=== PATIENT | male | born 1960 | race Caucasian/White ===

== ENCOUNTER 2020-12-14 09:54 | Outpatient (CLI) | payer OTHER, MEDICAID, SELFPAY ==
--- NOTE | ~2020-12-14 | MR_ITS ---
EXAMINATION: MR shoulder RT wo con DATE: 12/14/2020 10:49 INDICATION: Right shoulder pain TECHNIQUE: Magnetic resonance imaging (MRI) of the right shoulder was performed without intravenous c ontrast. Sequences included axial PD-weighted FS FSE, coronal oblique PD-weighted FS FSE, coronal obl ique T2-weighted FS FSE, sagittal PD-weighted FS FSE, and sagittal T1-weighted SE. COMPARISON: None. FINDINGS: Coracoacromial arch: The acromion undersurface is curved in morphology (type II). The coracoacromial ligament is normal. M inimal acromioclavicular osteoarthritis. Rotator cuff: The supraspinatus, infraspinatus and teres minor tendons are normal. The subscapularis tendon is norm al. Normal rotator cuff muscle bulk and signal. Biceps tendon, glenoid labrum and glenohumeral cartilage: Long head of the biceps tendon is normal. Glenoid labrum is normal. Glenohumeral cartilage is normal. Fluid: Physiologic amount of fluid in the glenohumeral joint and biceps tendon sheath. No loose osteochondra l bodies. No abnormal fluid signal in the subacromial/subdeltoid bursa to suggest bursitis. Bones: Normal marrow signal with no edema, fracture or pathologic marrow replacing process. There is thicken ing and mild increased fluid signal at the midportion of the rotator cuff interval along with thicken ing and mild increased fluid signal filling joint capsule at the axillary recess, both findings which can be seen in the setting of adhesive capsulitis which is a clinical diagnosis. IMPRESSION: 1. Thickening of the capsule at the axillary recess and at the rotator cuff interval which can be see n in the setting of adhesive capsulitis which is a clinical diagnosis. Otherwise unremarkable [facility] MRI. Reviewed, dictated and finalized at location A. IMPRESSION: 1. Thickening of the capsule at the axillary recess and at the rotator cuff int erval which can be seen in the setting of adhesive capsulitis which is a clinic al diagnosis. Otherwise unremarkable right shoulder MRI.
== END 2020-12-14 09:55 | disposition home or self-care (01) ==
LOC: ANHIMG 10:00
PROVIDERS: PCP Internal Medicine; Visit Provider Nurse Practitioner Family
DX: M25.511 Pain in right shoulder (principal)
CPT/HCPCS: 73221

== ENCOUNTER 2021-10-28 18:31 | Emergency (ER) | payer OTHER, SELFPAY ==
--- NOTE | 2021-10-28 18:48 | ED.GENADULT ---
HPI - General Adult General Chief complaint: Cardiac Arrest/CPR Stated complaint: CODE BLUE Time Seen by Provider: 10/28/21 18:48 History of Present Illness HPI narrative: Patient is a 61-year-old male who presents ER coding. Patient apparently had been short of breath last couple days at home. Has history of metastatic lung cancer and COPD. He also has known tumors in the brain. He is a full code. Patient was having difficulty breathing then when they arrived he was in cardiac arrest. He was in V. fib and received defibrillation. Upon arrival patient has had 45 minutes of CPR. He has an eye gel placed to provide oxygenation. End-tidal CO2 is in the 20s. Patient has had thready pulses with bradycardia. Related Data Home Medications Medication Instructions Recorded Confirmed metformin 1,000 mg tablet 1,000 mg PO BID 11/28/20 12/29/20 Allergies Allergy/AdvReac Type Severity Reaction Status Date / Time No Known Allergies Allergy Verified 12/29/20 15:18 Review of Systems Review of Systems: ROS unobtainable: Yes unobtainable due to medical condition [facility] Past Medical History Medical History (Updated 10/28/21 @ 18:50 by Tio Martell MD) Adhesive capsulitis COPD (chronic obstructive pulmonary disease) Diabetes History of brain cancer in adulthood Lung cancer Right shoulder pain Rotator cuff tear Family History Family History Unknown Lung disease Heart disease Diabetes mellitus Cancer Social History Social History (Updated 01/13/21 @ 15:22 by Abigail Sanchez, RT(R)) Smoking packs per day: 1.25 Smoking cigarettes per day: 25.0 Years smoked: 30 Smoking pack-years: 37.50 Smoking status: Former smoker Smoking end date: 09/28/16 Alcohol intake: never Exam Narrative: GENERAL: Chronically ill-appearing, thin, unresponsive. HEAD: Normocephalic, atraumatic. EYES: Pupils fixed mid dilated. Emesis in the eyes. ENT: I gel in the mouth. Emesis across the face. CHEST: No spontaneous respiratory effort. Coarse breath sounds with bagging. Right-sided Port-A-Cath HEART: Faint palpable pulse but no palpable distal processes. Unable to auscultate cardiac activity. ABDOMEN: Soft, nontender, nondistended. EXTREMITIES: Normal range of motion. No edema. Left tibial intraosseous line. SKIN: Warm, dry, no rash. NEURO: GCS 3 PSYCH: Normal mood and affect. Course Course Emergency Course: Patient received multiple doses of epinephrine as well as atropine. He was intubated in the ER. Patient with slight movement of heart on bedside ultrasound while in a bradycardic rhythm at a rate of 20. Attempted pacing without any capture and patient then in PEA arrest. Family at bedside for resuscitation. Patient pronounced as having at 1847. Dr. Villar will sign the certificate. Medical Decision Making Lab Data Labs: Lab Results 10/28/21 Range/Units 18:35 POC Capillary Glucose 317 H (65-105) mg/dl Discharge Plan Discharge Clinical Impression: Cardiopulmonary arrest Patient Disposition: Condition: Prescriptions: No Action metformin 1,000 mg tablet 1,000 mg PO BID Follow-up/Referrals: Jian,Pablo Saldivar MD [Non-Staff] -
--- NOTE | 2021-10-28 18:49 | PC.NURSE ---
61yr, M arrives to the ED via EMS from home after having a witness arrest. EMS established an Igel airway and IO prior to arrival, patient received one AED shock. Patient was Vfib on monitor for EMS, CPR was continued. EMS administered 300mg Amiodarone and 4 epinephrine. EMS reported a very low heart rate so CPR was continued. Upon patient arrival to ED @ 1826, CPR in progress. Patient moved to ED stretcher with Demarco continuing compressions. Dr. Martell at bedside upon patient's arrival, respiratory took over ventilation. EMS reported they started CPR at 1742. 1828: Epinephrine 1mg administered 183: Epinephrine 1mg administered 183: Pulse check, patient found to be in PEA, CPR resumed 183: Atropine 1mg administered 183: Epinephrine 1mg administered 183: Pulse check, patient found to have a very low, slow, non-life sustaining heart rate with doppler, CPR resumed 183:Atropine 1mg administered 183: Dr. Martell established 7.5 ETT, color change present on colormetric device, equal breath sounds per Dr. Martell auscultation 1837: Epinephrine 1mg administered 1838: Pulse check patient found to be in PEA, CPR resumed 1840: Pacing started, Epinephrine 1mg administered 1840: Pulse check, patient found to be in PEA, CPR resumed 18:41:19 Pacing at 60PPM 0mA 18:41:26 Pacing increased to 60PPM 10mA 18:41:45 Pacing increased to 60PPM 45mA 1842: Pacing increased to 70PPM 60mA 1843: Epinephrine 1mg administered 1845: Pulse check, patient found to be in PEA, CPR resumed Family brought in by Dr. Martell 1846: Epinephrine 1mg administered 1847: Pulse check, patient found to be in PEA 1847: Resuscitation efforts stopped. Dr. Martell declared time of at 1847. 1847: TIME OF
[2021-10-28 18:50] LABS: Glucose Point of Care 317 mg/dl (65-105)
--- NOTE | 2021-10-28 21:46 | PC.NURSE ---
picked up by home staff
== END 2021-10-28 21:49 | disposition expired ==
LOC: ANHED 18:55
PROVIDERS: Emergency Provider Emergency Medicine
DX: I46.9 Cardiac arrest, cause unspecified (principal); C34.90 Malignant neoplasm of unspecified part of unspecified bronchus or lung; C79.31 Secondary malignant neoplasm of brain; J44.9 Chronic obstructive pulmonary disease, unspecified; E11.9 Type 2 diabetes mellitus without complications; Z87.891 Personal history of nicotine dependence; Z79.84 Long term (current) use of oral hypoglycemic drugs
CPT/HCPCS: 31500; 82948; 92950; 99285; J0171; J0461